=== PATIENT | female | born 2000 | race Hispanic/Latino ===

== ENCOUNTER 2022-06-13 00:44 | Observation (INO) | payer OTHER, SELFPAY ==
[2022-06-13] VITALS (19 sets, daily range): BP systolic 129–155; BP diastolic 75–97; PULSE 71–105; RESP 8–24; TEMP 36.5–36.6; O2SAT 87–100
--- NOTE | ~2022-06-13 | CT_ITS ---
EXAMINATION: CT chest abdomen pelvis w con DATE: 06/13/2022 14:04 INDICATION: Intractable vomiting TECHNIQUE: Transaxial computed tomographic images of the chest, abdomen, and pelvis were obtained aft er the administration of 100 cc of Omnipaque 350 intravenous contrast. The dose-length product (DLP) was 608.38 mGy-cm. Automated exposure control and iterative reconstruction technique were employed. COMPARISON: None FINDINGS: CHEST CT: There is mild dependent atelectasis. No pleural effusion or pneumothorax. No pathologically enlarged thoracic lymph nodes are identified. The heart size is normal. ABDOMEN/PELVIS CT: The liver, spleen, pancreas, gallbladder, and adrenal glands are normal. The kidneys are unremarkable . There is mild gastric distention. There are couple of mildly distended, fluid-filled loops of jejun um without focal transition point identified. The remainder of the small and large bowel are unremark able. No pathologically enlarged abdominal or pelvic lymph nodes are identified. The appendix is norm al. There is a 1.6 cm cystic lesion of the right adnexa. IMPRESSION: 1. Gastric distention and some mildly distended loops of jejunum without focal transition point, like ly ileus or gastroenteritis. 2. No acute abnormality of the chest. Reviewed, dictated and finalized at location [facility] [facility] [employer] IMPRESSION: 1. Gastric distention and some mildly distended loops of jejunum without focal transition point, likely ileus or gastroenteritis. 2. No acute abnormality of the chest.
[2022-06-13 01:21] LABS: Fractional Inspired Oxygen 21 %; HCO3 VBG 24.4 mEq/l (24.0-30.0); PO2 VBG 67.7 mmHg (35.0-45.0)
[2022-06-13 01:24] LABS: Basophils Absolute Auto 0.1 K/mm3 (0.0-0.1); Basophils Percent Auto 0.5 % (0.2-1.2); Eosinophils Absolute Auto 0.2 K/mm3 (0-0.3); Eosinophils Percent Auto 1.4 % (0-4.4); Hematocrit 42.9 % (37.0-47.0); Hemoglobin 14.8 g/dL (12.0-15.0); Immature Granulocyte Absolute 0.02 K/mm3 (0.00-0.031); Immature Granulocyte Percent A 0.2 % (0-0.5); Lymphocytes Absolute Auto 3.07 K/mm3 (0.9-3.2); Mean Corpuscular HGB Conc 34.5 g/dl (32-36); Mean Corpuscular Hemoglobin 28.4 pg (26-34); Mean Corpuscular Volume 82.3 fl (80-100); Mean Platelet Volume 10.4 fl (7.4-10.4); Monocytes Percent Auto 8.7 % (2.6-8.5); Neutrophils Absolute Auto 6.7 K/mm3 (1.3-6.7); Neutrophils Percent Auto 61.2 % (45.5-73.1); Platelet Count Result 333 k/mm3 (150-375); Red Blood Count 5.21 M/mm3 (4.2-5.4); Red Cell Distribution Width 12.8 % (11.5-14.5)
[2022-06-13 01:24] LABS: pH VBG 7.609 (7.300-7.400)
[2022-06-13 01:25] LABS: PCO2 VBG 24.9 mmHg (42.0-48.0)
[2022-06-13] MEDS: SODIUM CHLORIDE 0.9% IV 1,000 ML 999 ML IV CONT ×2 (01:25→01:40)
[2022-06-13] MEDS: ONDANSETRON INJ 4 MG/2 ML VIAL IV PUSH ×2 (01:25→20:16)
--- NOTE | 2022-06-13 01:25 | ED.GENADULT ---
HPI - General Adult General Chief complaint: Nausea/Vomiting/Diarrhea Stated complaint: VOMITING Time Seen by Provider: 06/13/22 00:54 Source: patient and RN notes reviewed Mode of arrival: ambulatory Limitations: no limitations History of Present Illness HPI narrative: This is a 21 year old female who presents for evaluation of nausea and vomiting. Patient states that she is a diabetic. She reports that for the past 10 years she has nausea and vomiting with the start of her cycle. She started her cycle 30 minutes and she is having nausea and vomiting. She also reports lower abdominal cramping. She did not have any zofran at home. She reports her blood sugar was 240s and she normally runs in the 400s. Related Data Home Medications Medication Instructions Recorded Confirmed insulin aspart U-100 100 unit/mL 8 unit subcut DAILY 06/13/22 06/13/22 (3 mL) subcutaneous pen (Novolog Flexpen U-100 Insulin aspart) insulin glargine 100 unit/mL (3 20 unit subcut DAILY 06/13/22 06/13/22 mL) subcutaneous pen (Basaglar KwikPen U-100 Insulin) Allergies Allergy/AdvReac Type Severity Reaction Status Date / Time No Known Allergies Allergy Verified 06/13/22 01:22 Review of Systems Constitutional: Constitutional: Reports fatigue and Denies weakness Cardiovascular: Cardiovascular: Denies syncope, Denies rapid heart rate, Denies irregular heart rhythm, Denies leg edema and Denies dyspnea Respiratory: Respiratory: Denies chest congestion, Denies hemoptysis, Denies excessive phlegm production and Denies dyspnea Gastrointestinal: Gastrointestinal: Reports abdominal pain, Denies hematochezia, Reports diarrhea, Reports nausea and Reports vomiting Genitourinary: Genitourinary: Denies hematuria and Denies dysuria Musculoskeletal: Musculoskeletal: Denies joint swelling, Denies loss of height and Denies muscle weakness Neurologic: Denies syncope, Denies focal weakness and Denies weakness [facility] Past Medical History Medical History (Updated 06/13/22 @ 07:25 by Joann Young MD) Hyperglycemia due to diabetes mellitus Social History Social History Lack of Transportation: No Lack of Food: Never True Current Housing: I Have Housing Concerned About Future Housing: No Difficulty Paying Gas/Electric Bills: No Difficulty Paying for Meds: No Currently Unemployed: No Education: High School Diploma/GED Difficulty w/ Childcare or Family Care: No Spiritual care concerns: No Exam Const: General: ill appearing; No diaphoretic Orientation/consciousness: patient oriented x3 HENMT: Head: normal to inspection Face and sinus: normal facial exam Mouth: Yes Normal oral and palatal mucosa present Eyes: EOM: EOMs intact bilaterally Resp: Effort & Inspection: normal respiratory effort Auscultation: clear to auscultation bilaterally Cardio: Rate: regular rate Rhythm: regular rhythm Heart sounds: no murmurs GI: GI Palp: Yes Soft to palpation, No Tenderness to palpation present (GI), No Guarding due to palpation present (GI), No Rigid due to palpation and No Hernia present Auscultation: normal bowel sounds Skin: General skin exam: normal color Rashes: no rashes Wounds: no wounds Neuro: General: patient oriented x3, moves all extremities and CN's II-XI intact bilaterally Psych: Mental Status: mental status grossly normal Affect: normal affect Attitude: cooperative Course Reevaluation(s) Reevaluation #1: Patient presents with nausea, vomiting and diarrhea that started with start of menses. She states this is typical for her and she normally requires hospitalization. She has been given multiple antiemetics and she is still having emesis. I spoke with Dr. Gunter who accepts admission. Date: 06/13/22 Time: 04:30 Vital Signs Vital signs: Vital Signs Temperature 97.9 F 06/13/22 00:49 Pulse Rate 76 06/13/22 00:49 Respiratory Rate 18 06/13/22 00:49 Blood Pressure 137/84 06/13/22
[2022-06-13 01:26] LABS: Device ROOM AIR
[2022-06-13 01:31] LABS: Glucose Point of Care 329 mg/dl (65-105)
[2022-06-13 01:38] LABS: Lactic Acid Reflex 2.4 mmol/L (0.7-2.0)
[2022-06-13 01:43] LABS: Beta-Hydroxybutyrate/Acetoacetate 0.41 mmol/L (0.02-0.27)
[2022-06-13] MEDS: PROMETHAZINE HCL 25 MG/ML AMPUL 12.5 MG IV PUSH (01:52)
[2022-06-13 01:55] LABS: Alanine Aminotransferase 18 U/L (6-35); Alkaline Phosphatase 83 U/L (38-126); Anion Gap 10 mmol/L (8-16); Aspartate Amino Transferase 20 U/L (14-36); Bilirubin,Total 0.3 mg/dL (0.2-1.3); Blood Urea Nitrogen 14 mg/dL (7-17); Calcium 8.7 mg/dL (8.4-10.2); Carbon Dioxide 25 mmol/L (22-30); Chloride 99 mmol/L (98-107); Estimated CRCL calculation 168 ml/min; Estimated Glomerular Filt Rate > 60; Glucose 312 mg/dL (65-110); Lipase 56 U/L (23-300); Magnesium 1.4 mg/dL (1.6-2.3); Sodium 134 mmol/L (137-145)
[2022-06-13 03:00] LABS: Add Urine Microscopic? YES; Appearance Urine Clear (Clear); Bilirubin Urine Negative (Negative); Blood Urine 3+ (Negative); Color Urine Yellow (Yellow); Glucose Urine UA 3+ mg/dL (Negative); Ketones Urine 1+ mg/dL (Negative); Leukocyte Esterase Ur Negative LEU/UL (Negative); Nitrate Urine Negative (Negative); Protein Urine Negative (Negative); Specific Grav Ur 1.015 (1.001-1.035); Urobilinogen Urine 0.2 mg/dL (<2.0)
[2022-06-13 03:04] LABS: Mucus Urine Rare /lpf; RBC Urine 0-2 /hpf (0-2); Squamous Epithelial Cell Urine Many /hpf (Few); WBC Urine 0-3 /hpf
[2022-06-13 03:22] LABS: Beta HCG Quantitative < 2.39 mIU/ML
[2022-06-13] MEDS: METOCLOPRAMIDE HCL INJ 10 MG/2 ML VIAL IV PUSH (03:29)
[2022-06-13 03:36] LABS: Influenza A QL RT-PCR Negative (Negative); Influenza B QL RT-PCR Negative (Negative); SARS-CoV-2 RNA PCR Negative
[2022-06-13 03:39] LABS: Glucose Point of Care 350 mg/dl (65-105)
[2022-06-13] MEDS: INSULIN HUMAN REGULAR (*BKC) 100 UNITS/ML 8 UNITS SUB-Q (03:57)
[2022-06-13 04:22] LABS: Reflex Lactic Acid Yes or No Add Lactic
--- NOTE | 2022-06-13 04:54 | PM.IMHP ---
H&P: HPI History of Present Illness Date/Time: 06/13/22 04:54 Chief Complaint: Nausea and vomiting Narrative: This is a 21-year-old female with past medical history significant for type 2 diabetes mellitus. Patient presents to the emergency room after 1 day of nausea vomiting unable to keep anything down diarrhea states that she gets these spells her at around her menstruation. Patient denies any fevers, rigors, chills, cough, sputum production. Preliminary workup was significant for a magnesium of 1.4 potassium of 3 anion gap of 10. Patient has been admitted for further evaluation management and treatment. Review of Systems Review of Systems: Nausea, vomiting, diarrhea, abdominal pain diffusely localized. Constitutional: Constitutional: Denies chills, Denies fever(s), Denies malaise and Denies weakness Eyes: Eyes: Denies change in vision ENT: Denies dysphagia and Denies odynophagia Cardiovascular: Cardiovascular: Denies chest pain, Denies lightheadedness and Denies palpitations Respiratory: Respiratory: Denies chest congestion, Denies pain on inspiration, Denies dyspnea and Denies dyspnea on exertion Gastrointestinal: Gastrointestinal: Reports abdominal pain, Denies dyspepsia, Denies heartburn, Reports diarrhea, Reports nausea and Reports vomiting Genitourinary: Genitourinary: Reports no additional female genitourinary complaints and Reports as per HPI Musculoskeletal: Musculoskeletal: Denies back pain, Denies myalgias, Denies joint swelling and Denies muscle weakness Integumentary/Breasts: Skin/Breast: Denies rash Neurologic: Denies vertigo, Denies dizziness, Denies focal weakness and Denies Sensory deficit (Neuro) Psychiatric: Psychiatric: Reports no additional psychiatric complaints and Reports as per HPI Endocrine: Endocrine: Denies cold intolerance, Denies flushing, Denies heat intolerance, Denies polyphagia, Denies polydipsia and Denies palpitations Hematologic/Lymphatic: Hematologic/Lymphatic: Reports no additional hematologic/lymphatic complaints and Reports as per HPI Allergic/Immunologic: Allergic/Immunologic: Reports no additional allergic/immunologic complaints and Reports as per HPI Meds Home Medications and Allergies Allergies Allergy/AdvReac Type Severity Reaction Status Date / Time No Known Allergies Allergy Verified 06/13/22 01:22 Vital Signs Vital Signs - 24 hr 06/13/22 00:49 06/13/22 02:06 06/13/22 02:08 Temperature 97.9 F Pulse Rate 76 Respiratory Rate 18 Blood Pressure 137/84 Pulse Oximetry 100 87 L 100 Oxygen Delivery Room Air Nasal Cannula Oxygen Flow Rate 2 06/13/22 01:07 06/13/22 01:15 06/13/22 01:19 Temperature Pulse Rate 87 79 105 H Respiratory Rate 15 16 15 Blood Pressure 155/95 H Pulse Oximetry 99 Oxygen Delivery Oxygen Flow Rate 06/13/22 01:30 06/13/22 01:31 06/13/22 01:45 Temperature Pulse Rate 85 88 92 Respiratory Rate 17 13 24 H Blood Pressure 143/86 H Pulse Oximetry 100 100 100 Oxygen Delivery Oxygen Flow Rate 06/13/22 01:59 06/13/22 02:00 06/13/22 02:01 Temperature Pulse Rate 82 79 77 Respiratory Rate 14 12 8 L Blood Pressure 140/97 H 146/91 H Pulse Oximetry 100 98 98 Oxygen Delivery Oxygen Flow Rate 06/13/22 02:15 06/13/22 02:16 06/13/22 02:30 Temperature Pulse Rate 74 78 71 Respiratory Rate 10 L 13 23 H Blood Pressure 137/93 H Pulse Oximetry 100 100 100 Oxygen Delivery Oxygen Flow Rate 06/13/22 02:31 Temperature Pulse Rate 76 Respiratory Rate 21 H Blood Pressure 129/75 Pulse Oximetry 100 Oxygen Delivery Oxygen Flow Rate Exam Narrative: Patient is laying in stretcher Const: General: comfortable, no acute distress, well developed, alert, awake, tired appearing and average body habitus Nutritional Appearance: average body habitus Orientation/consciousness: patient oriented x3 HENMT: Head: normal to inspection, normocephalic and atraumatic Ears: hea
[2022-06-13 05:00] LABS: Lactic Acid 1.9 mmol/L (0.7-2.0)
[2022-06-13] MEDS: KCL 20 MEQ/D5/0.45% SOD CHL 1,000 ML 125 ML IV CONT (05:20)
[2022-06-13 07:56] LABS: Glucose Point of Care 377 mg/dl (65-105)
[2022-06-13] MEDS: INSULIN ASPART (*BKC) 100 UNITS/ML 8 UNITS SUB-Q ×2 (09:37→13:33)
[2022-06-13] MEDS: MAGNESIUM SULF 2 GM/WATER 50ML 2 GM/50 ML BAG IVPB (09:37)
[2022-06-13] MEDS: INSULIN GLARGINE (*BKC) 100 UNITS/ML 20 UNITS SUB-Q (09:38)
[2022-06-13] MEDS: PANTOPRAZOLE SODIUM IV 40 MG VIAL IV PUSH (11:08)
[2022-06-13 11:40] LABS: Glucose Point of Care 274 mg/dl (65-105)
[2022-06-13] MEDS: ONDANSETRON HCL ODT 4 MG TABLET PO (13:31)
[2022-06-13] MEDS: BELLADONNA ALK/PHENOB ELIX 10 ML, MAG HYDROX/ALUMINUM HYD/SIMETH 30 ML, LIDOCAINE HCL 2... PO (13:31)
[2022-06-13] MEDS: KCL 20 MEQ/0.45% NS 1,000 ML 125 ML IV CONT (13:38)
[2022-06-13] MEDS: MAG HYDROX/AL HYDROX/SIMETH 30 ML UDC (14:47)
[2022-06-13 16:36] LABS: Glucose Point of Care 226 mg/dl (65-105)
--- NOTE | 2022-06-13 17:05 | PM.IMPN ---
Progress Note: A&P Assessment and Plan (1) Intractable nausea and vomiting: Code(s): R11.2 - Nausea with vomiting, unspecified Status: Acute Assessment and Plan: CT abdomen and pelvis with possible ileus or gastroenteritis. patient reports symptoms of cyclical vomiting syndrome secondary to menstrual cycles that has improved with contraception in the past. Continue supportive care. Pain control with IV toradol, PO acetaminophen. nausea control with Zofran ODT Continue IV fluids. clear liquid diet advance as tolerated. (2) Abdominal pain: Code(s): R10.9 - Unspecified abdominal pain Status: Acute Assessment and Plan: Diffusely tender McBurney negative CT shows possible ileus versus gastroenteritis May be secondary to menstrual cycle and from profuse vomiting. Analgesics as above. (3) Hypomagnesemia: Code(s): E83.42 - Hypomagnesemia Status: Acute Assessment and Plan: Magnesium level 1.4; give 2 grams mag sulfate IV x1. Secondary to vomiting Repeat Magnesium level in the morning. (4) Hypokalemia: Code(s): E87.6 - Hypokalemia Status: Acute Assessment and Plan: Potassium 3.0. continue IV fluids with potassium Repeat BMP in the morning. Replace as needed. secondary to vomiting. (5) Insulin dependent diabetes mellitus: Status: Acute Assessment and Plan: With hyperglycemia. Glucose >300 mg/dL. Change dextrose IV fluids to 1/2NS with potassium only. Accu-checks AC/HS with hypoglycemia protocol continue lantus at home dose Novolog moderate-dose sliding scale with meals. Adjust per glucose and diet tolerance. Plan Possible discharge tomorrow if able to tolerate oral intake. Time Spent With Patient Time with patient: 15 - 25 minutes Subjective Date/time seen: 06/13/22 17:05 She c/o indigestion that she attributes to frequent vomiting. Her discomfort is primarily due to nausea. She reports heavy menstrual periods. In the past she had Nexplanon patch, however, she had this removed to see if her menstrual cycles were not has severe. Her OBGYN is in [place] and she plans to discuss further contraceptive options. Review of Systems Review of Systems: All systems reviewed & are unremarkable except as noted in HPI and below Exam Narrative: General: Mild distress.? Well-developed adult female lying in bed. Mental Status/Psych: Awake, alert and oriented x3 with clear speech. Neutral mood and affect. Pleasant and cooperative. Skin: Skin fair, warm, dry and intact without rashes or lesions. Normal color for ethnicity. HEENT: Normocephalic. Sclera is non-icteric. Pupils equal and round. Grossly normal hearing. Oral mucosa dry. Tongue midline. Oropharynx within normal limits. Neck: Supple. Thyroid without nodularity. Trachea midline. No JVD. Heart: S1 and S2 regular rate and rhythm. No murmurs, gallops, or rubs auscultated. Chest: Respirations even and unlabored. Lung sounds are clear to auscultation in all lobes bilaterally without wheezes, rhonchi, or rales. Abdomen: Soft, round and diffuse tenderness to palpation.? Bowel sounds present in all 4 quadrants. Extremities:? Grossly normal ROM all extremities. No edema. Radial and dorsalis pedis pulses +2 bilaterally. Neurological: No focal deficits. Cranial nerves 2-12 grossly intact.?No facial droop. Objective Data Vital Signs Vital Signs: Vital Signs - 24 hr 06/13/22 00:49 06/13/22 02:06 06/13/22 02:08 Temperature 97.9 F Pulse Rate 76 Respiratory Rate 18 Blood Pressure 137/84 Pulse Oximetry 100 87 L 100 Oxygen Delivery Room Air Nasal Cannula Oxygen Flow Rate 2 06/13/22 01:07 06/13/22 01:15 06/13/22 01:19 Temperature Pulse Rate 87 79 105 H Respiratory Rate 15 16 15 Blood Pressure 155/95 H Pulse Oximetry 99 Oxygen Delivery Oxygen Flow Rate 06/13/22 01:30 06/13/22 01:31 06/13/22 01:45 Temperature Pulse Rate 85 88 92 Respirato
[2022-06-13] MEDS: SUCRALFATE SUSP 100 MG/ML 10 ML UDC 1000 MG PO ×2 (17:15→21:44)
[2022-06-14] MEDS: KCL 20 MEQ/0.45% NS 1,000 ML 125 ML IV CONT ×2 (01:38→09:21)
[2022-06-14] MEDS: KETOROLAC 30 MG/ML VIAL (*BKC) IV PUSH (02:01)
[2022-06-14] MEDS: PROMETHAZINE HCL 25 MG/ML AMPUL 12.5 MG IV PUSH (03:58)
[2022-06-14 05:40] VITALS: BP 101/59; PULSE 69; RESP 18; TEMP 36.4; O2SAT 100
[2022-06-14] MEDS: SUCRALFATE SUSP 100 MG/ML 10 ML UDC 1000 MG PO ×2 (06:07→12:32)
[2022-06-14 07:55] LABS: Basophils Percent Auto 0.4 % (0.2-1.2); Eosinophils Percent Auto 0.3 % (0-4.4); Hematocrit 42.6 % (37.0-47.0); Hemoglobin 14.2 g/dL (12.0-15.0); Immature Granulocyte Absolute 0.02 K/mm3 (0.00-0.031); Immature Granulocyte Percent A 0.2 % (0-0.5); Lymphocytes Absolute Auto 2.52 K/mm3 (0.9-3.2); Lymphocytes Percent Auto 27.5 % (18.3-44.2); Mean Corpuscular HGB Conc 33.3 g/dl (32-36); Mean Corpuscular Hemoglobin 28.2 pg (26-34); Mean Corpuscular Volume 84.7 fl (80-100); Mean Platelet Volume 9.7 fl (7.4-10.4); Monocytes Absolute Auto 0.7 K/mm3 (0.1-0.6); Monocytes Percent Auto 7.4 % (2.6-8.5); Neutrophils Absolute Auto 5.9 K/mm3 (1.3-6.7); Neutrophils Percent Auto 64.2 % (45.5-73.1); Platelet Count Result 311 k/mm3 (150-375); Red Blood Count 5.03 M/mm3 (4.2-5.4); Red Cell Distribution Width 12.5 % (11.5-14.5); White Blood Count 9.2 K/mm3 (4.5-10.0)
[2022-06-14 08:06] LABS: Alanine Aminotransferase 17 U/L (6-35); Albumin Level 3.6 g/dL (3.5-5.1); Alkaline Phosphatase 79 U/L (38-126); Anion Gap 4 mmol/L (8-16); Aspartate Amino Transferase 20 U/L (14-36); Bilirubin,Total 0.5 mg/dL (0.2-1.3); Blood Urea Nitrogen 13 mg/dL (7-17); Calcium 8.3 mg/dL (8.4-10.2); Carbon Dioxide 27 mmol/L (22-30); Chloride 97 mmol/L (98-107); Estimated CRCL calculation 168 ml/min; Estimated Glomerular Filt Rate > 60; Glucose 286 mg/dL (65-110); Potassium 3.7 mmol/L (3.4-5.0); Sodium 128 mmol/L (137-145)
[2022-06-14 08:27] LABS: Glucose Point of Care 295 mg/dl (65-105)
[2022-06-14] MEDS: INSULIN GLARGINE (*BKC) 100 UNITS/ML 20 UNITS SUB-Q (09:13)
[2022-06-14] MEDS: INSULIN ASPART (*BKC) 100 UNITS/ML SUB-Q ×2 (09:13→12:35)
[2022-06-14] MEDS: PANTOPRAZOLE SODIUM IV 40 MG VIAL IV PUSH (09:14)
[2022-06-14 09:52] LABS: Glucose Point of Care 262 mg/dl (65-105)
--- NOTE | 2022-06-14 11:34 | PM.DS ---
DS: Admitting Diagnosis Discharge Date 06/14/2022 1134 Admitting Diagnosis Intractable nausea and vomiting Abdominal pain Hypomagnesemia Hypokalemia DS: Discharge Diagnosis Discharge Diagnosis (1) Cyclical vomiting, intractable: Code(s): R11.15 - Cyclical vomiting syndrome unrelated to migraine Status: Acute Assessment and Plan: CT abdomen and pelvis with possible ileus or gastroenteritis. patient reports symptoms of cyclical vomiting syndrome secondary to menstrual cycles that has improved with contraception in the past.? Continue supportive care.? Pain control with IV toradol, PO acetaminophen.? nausea control with Zofran ODT Treated with IV fluids.? Clear liquid diet advance as tolerated.? (2) Abdominal pain: Code(s): R10.9 - Unspecified abdominal pain Status: Acute Assessment and Plan: Diffusely tender abdomen. McBurney negative on exam. CT shows possible ileus versus gastroenteritis secondary to menstrual cycle and from profuse vomiting. Analgesics as above. (3) Hypomagnesemia: Code(s): E83.42 - Hypomagnesemia Status: Acute Assessment and Plan: Magnesium level 1.4; give 2 grams mag sulfate IV x1. Secondary to vomiting (4) Hypokalemia: Code(s): E87.6 - Hypokalemia Status: Acute Assessment and Plan: Potassium 3.0. continue IV fluids with potassium Replace as needed. secondary to vomiting. (5) Insulin dependent diabetes mellitus: Status: Acute Assessment and Plan: With hyperglycemia. Glucose >300 mg/dL. Changed dextrose IV fluids to 1/2NS with potassium only. Accu-checks AC/HS with hypoglycemia protocol continued lantus at home dose Novolog moderate-dose sliding scale with meals. Adjust per glucose and diet tolerance. DS: Summary Hospital Course Reason for hospitalization: Nausea and vomiting Hospital Course: Eugene Linares is a 21-year-old female with type 2 diabetes mellitus.? She presented to the emergency room after 1 day of nausea and vomiting. She was unable to keep anything down. She reported that she gets these spells around her menstruation.? Patient denied fevers, rigors, chills, cough, and sputum production.? Preliminary workup was significant for a magnesium of 1.4, potassium of 3, anion gap of 10.? She was admitted to the medical floor for supportive care. She was treated with IV antiemetics, IV fluids and bowel rest. CT abdomen and pelvis was consistent with gastroenteritis. Her symptoms improved and she was able to tolerate oral intake. She was discharged home in stable condition. She was counseled to follow up with her OBGYN for discussion of contraceptive options for control of symptoms. Status at Discharge Cognitive/behavioral status at discharge: Alert and oriented x 4 Functional status at discharge: independent ambulation Overall status at discharge: patient is progressing back to baseline Time Spent with Patient Time attestation: Total time spent providing and/or coordinating discharge services: Time spent: Greater than 30 minutes Exam Narrative: General: No distress.? Well-developed adult female lying in bed. Temp 97.5F, HR 69, RR 18, BP 101/59, spO2 100% room air. Mental Status/Psych: Awake, alert and oriented x3 with clear speech. Neutral mood and affect. Pleasant and cooperative. Skin: Skin fair, warm, dry and intact without rashes or lesions. Normal color for ethnicity. HEENT: Normocephalic. Sclera is non-icteric. Pupils equal and round. Grossly normal hearing. Oral mucosa dry. Neck: Supple. Heart: S1 and S2 regular rate and rhythm. No murmurs, gallops, or rubs auscultated. Chest: Respirations even and unlabored. Lung sounds are clear to auscultation in all lobes bilaterally without wheezes, rhonchi, or rales. Abdomen: Soft, round and mild diffuse tenderness to palpation.? Bowel sounds present in all 4 quadrants. Extremities:? Grossly normal ROM all extremities. No edema. Radi
[2022-06-14] MEDS: ONDANSETRON HCL ODT 4 MG TABLET PO (12:32)
[2022-06-14 12:36] LABS: Glucose Point of Care 249 mg/dl (65-105)
== END 2022-06-14 14:39 | disposition home or self-care (01) ==
LOC: ANHED 02:01 → ANH3MEDSUR 06:02
PROVIDERS: Admitting Provider Internal Medicine; Emergency Provider General Practice; Visit Provider Family Medicine
DX: R11.15 Cyclical vomiting syndrome unrelated to migraine (principal); E83.42 Hypomagnesemia; E87.6 Hypokalemia; E11.9 Type 2 diabetes mellitus without complications; R53.83 Other fatigue; Z20.822 Contact with and (suspected) exposure to COVID-19; K31.89 Other diseases of stomach and duodenum; Z79.4 Long term (current) use of insulin
CPT/HCPCS: 36415; 71260; 74177; 80053; 81001; 81025; 82010; 82803; 82948; 83605; 83690; 83735; 84702; 85025; 87636; 96361; 96365; 96366; 96374; 96375; 96376; 99285; A9270; C9113; G0378; J1815; J1885; J2405; J2550; J2765; J3475; J3480; J7030; Q9967